=== PATIENT | male | born 1935 | race Caucasian/White ===

== ENCOUNTER 2018-06-27 14:51 | Inpatient (IN) ==
--- NOTE | 2018-06-27 16:14 | ED ---
HPI General Chief complaint: Weakness Stated complaint: Weak/Dizzy/Cold Sx x1wk Time Seen by Provider: 06/27/18 15:33 Source: patient Mode of arrival: ambulatory Limitations: no limitations History of Present Illness MD Complaint: Reports generalized weakness Onset (ago): week(s) (1) Duration: constant and progressively worsening Location: Reports generalized Relieving factors: none Exacerbating factors: other (standing up) Context: Reports other (Patient just drove here from [place]) Associated symptoms: Reports other (swollen LLE, recent left TKA) Related Data Home Medications Medication Instructions Recorded Confirmed tamsulosin 0.4 mg PO DAILY 06/27/18 06/27/18 Allergies Allergy/AdvReac Type Severity Reaction Status Date / Time No Known Allergies Allergy Verified 06/27/18 15:12 Review of Systems ROS: all other systems reviewed are negative [facility] Medical History Medical History History of kidney cancer (Acute) Surgical History Surgical History H/O kidney removal (Acute) H/O left knee surgery (Acute) Social History Social History Substance History: No History of Abuse Smoking Status: Never smoker How Often Do You Have a Drink Containing Alcohol: Monthly or less Recent Travel in [facility] within the Last 8 Weeks: No Recent Out of Country Travel within the Last 8 Weeks: No Immunization History Tetanus Immunization: >5 Years Exam Const General: cooperative, healthy appearing, comfortable, no acute distress and well developed Orientation: alert, awake and oriented x3 HENMT Head: normal to inspection, normocephalic and atraumatic Eyes Alignment and Position: alignment normal and position abnormal Conjunctivae: conjunctivae normal Sclera: sclerae normal EOM: EOM intact bilaterally Neck Neck: normal visual inspection and full ROM Chest Chest: normal inspection of the chest Resp Effort & Inspection: normal respiratory effort and able to speak in complete sentences Auscultation: clear to auscultation bilaterally Cardio Rate: regular rate Rhythm: regular rhythm GI Inspection: normal to inspection Palpation: soft Back/Spine/Pelvis Cervical Spine: cervical ROM normal Thoracic/Lumbar Spine: thoraco-lumbar ROM normal Skin General: no rashes or lesions noted, turgor normal and dry skin Neuro General: alert, awake, oriented x3, moves all extremities and CN's II-XI intact bilaterally Extrem General: normal to inspection, full ROM and edema Laterality: on the left Psych Appearance: grossly normal Mental Status: mental status grossly normal Speech and Movement: speech and movement normal Mood: congruent mood Affect: normal affect Attitude: cooperative Thought Process: normal Thought Content: normal Judgment: judgment good Course Initial Documented Vital Signs Temperature 97.6 F 06/27/18 15:10 Pulse Rate 86 06/27/18 15:10 Respiratory Rate 16 06/27/18 15:10 Blood Pressure 93/54 L 06/27/18 15:10 Pulse Oximetry 100 06/27/18 15:10 Last Documented Vital Signs Temperature 97.6 F 06/27/18 15:10 Pulse Rate 68 06/27/18 16:45 Respiratory Rate 19 06/27/18 16:45 Blood Pressure 128/63 06/27/18 16:45 Pulse Oximetry 99 06/27/18 16:45 Critical Care Time Critical Care Time: Yes Total Critical Care Time: 30 Attestation: Time to perform other separately billable procedures was not included in the critical care time. My time did not include minutes spent treating any other patients simultaneously or on activities that did not directly contribute to the patient's treatment. The services I provided to this patient were to treat and/or prevent clinically significant deterioration due to weakness, rule out ACS I provided critical care services requiring my management, as noted below: Chart data review, documentation time, medication orders and management, vital sign assessments/reviewing monitor data, ordering and reviewing lab tests, ordering and interpreting/reviewing x-rays and diagnostic studies, care of the patient and discussion of the patient with the admitting physicians Medical Decision Making MDM Narrative Medical decision making narrative: This patient presents with a one-week history of weakness/lightheadedness. Symptoms are exacerbated on standing. He also reports a dry cough. He further reports that he just drove here from [place] and that he has had swelling of his left leg. He had a left total knee arthroplasty about a month ago. Exam is remarkable only for edema of the left lower extremity. Patient's troponin is elevated but he also has an elevated creatinine of 2.0. I have not yet ordered heparin because he could have a DVT. If he has a DVT, the dose of heparin is different. Therefore, I will wait until this ultrasound before heparinizing him. I will give him an aspirin. Repeat troponin was ordered for 3 hours after the first troponin. I have ordered heparin bolus and drip using the DVT protocol. Medical Screen Exam Complete: Yes Emergency Medical Condition: Yes Differential Diagnosis Differential Diagnosis: Differential diagnosis of weakness includes but is not limited to infection, CVA, electrolyte disturbance, renal failure, hypoglycemia Lab Data Lab results reviewed: Yes I reviewed the patient's lab results. Result diagrams: 06/27/18 16:10 06/27/18 16:10 Lab Results 06/27/18 06/27/18 06/27/18 Range/Units 16:10 16:10 16:10 CBC w Diff Auto diff final WBC 7.9 (4.0-11.0) th/mm3 RBC 4.26 L (4.50-5.90) mil/mm3 Hgb 12.1 L (13.0-17.0) gm/dL Hct 36.1 L (39.0-51.0) % MCV 84.9 (80.0-100.0) fL MCH 28.5 (27.0-34.0) pg MCHC 33.6 (32.0-36.0) % RDW 13.1 (11.6-17.2) % Plt Count 230 (150-450) th/mm3 MPV 7.4 (7.0-11.0) fL Neut % (Auto) 75.4 H (16.0-70.0) % Lymph % (Auto) 17.0 (9.0-44.0) % Blaine % (Auto) 5.8 (0.0-8.0) % Eos % (Auto) 1.5 (0.0-4.0) % Baso % (Auto) 0.3 (0.0-2.0) % Neut # (Auto) 6.0 (1.8-7.7) th/mm3 Lymph # (Auto) 1.3 (1.0-4.8) th/mm3 Blaine # (Auto) 0.5 (0.0-0.9) th/mm3 Eos # (Auto) 0.1 (0.0-0.4) th/mm3 Baso # (Auto) 0.0 (0.0-0.2) th/mm3 WBC Differential . Differential Comment . PT 11.1 (9.8-11.6) sec INR 1.1 Ratio APTT 30.6 (23.4-31.7) sec Sodium 137 (136-145) meq/L Potassium 4.9 (3.5-5.1) meq/L Chloride 107 (98-107) meq/L Carbon Dioxide 23.8 (21.0-32.0) meq/L Anion Gap 6 (5-15) meq/L BUN 28 H (7-18) mg/dL Creatinine 2.00 H (0.60-1.30) mg/dL Estimated GFR 32 L (>89) mL/min Random Glucose 114 H (74-106) mg/dL Calcium 9.1 (8.5-10.1) mg/dL Magnesium 2.2 (1.5-2.5) mg/dL Total Bilirubin 0.8 (0.2-1.0) mg/dL AST 21 (15-37) U/L ALT 20 (12-78) U/L Alkaline Phosphatase 116 (45-117) U/L Troponin I 0.28 H (0.02-0.05) ng/mL Total Protein 7.6 (6.4-8.2) g/dL Albumin 3.3 L (3.4-5.0) g/dL Urine Color (Yellw/Straw) Urine Clarity (Clear) Urine pH (5.0-8.5) Ur Specific [place] (1.002-1.035) Urine Protein (Neg-Trace) mg/dL Urine Glucose (UA) (Negative) mg/dL Urine Ketones (Negative) mg/dL Urine Occult Blood (Negative) Urine Nitrate (Negative) Urine Bilirubin (Negative) Urine Urobilinogen (Less than 2) mg/dL Ur Leukocyte Esterase (Negative) Urine RBC (0-3) /hpf Urine WBC (0-5) /hpf Urine Mucus (Occasional) /lpf Micro UA Comment Ur Microscopic Review Urine Culture Comments 06/27/18 Range/Units 16:50 CBC w Diff WBC (4.0-11.0) th/mm3 RBC (4.50-5.90) mil/mm3 Hgb (13.0-17.0) gm/dL Hct (39.0-51.0) % MCV (80.0-100.0) fL MCH (27.0-34.0) pg MCHC (32.0-36.0) % RDW (11.6-17.2) % Plt Count (150-450) th/mm3 MPV (7.0-11.0) fL Neut % (Auto) (16.0-70.0) % Lymph % (Auto) (9.0-44.0) % Blaine % (Auto) (0.0-8.0) % Eos % (Auto) (0.0-4.0) % Baso % (Auto) (0.0-2.0) % Neut # (Auto) (1.8-7.7) th/mm3 Lymph # (Auto) (1.0-4.8) th/mm3 Blaine # (Auto) (0.0-0.9) th/mm3 Eos # (Auto) (0.0-0.4) th/mm3 Baso # (Auto) (0.0-0.2) th/mm3 WBC Differential Differential Comment PT (9.8-11.6) sec INR Ratio APTT (23.4-31.7) sec Sodium (136-145) meq/L Potassium (3.5-5.1) meq/L Chloride (98-107) meq/L Carbon Dioxide (21.0-32.0) meq/L Anion Gap (5-15) meq/L BUN (7-18) mg/dL Creatinine (0.60-1.30) mg/dL Estimated GFR (>89) mL/min Random Glucose (74-106) mg/dL Calcium (8.5-10.1) mg/dL Magnesium (1.5-2.5) mg/dL Total Bilirubin (0.2-1.0) mg/dL AST (15-37) U/L ALT (12-78) U/L Alkaline Phosphatase (45-117) U/L Troponin I (0.02-0.05) ng/mL Total Protein (6.4-8.2) g/dL Albumin (3.4-5.0) g/dL Urine Color Yellow (Yellw/Straw) Urine Clarity Clear (Clear) Urine pH 6.0 (5.0-8.5) Ur Specific [place] 1.020 (1.002-1.035) Urine Protein Negative (Neg-Trace) mg/dL Urine Glucose (UA) Negative (Negative) mg/dL Urine Ketones Negative (Negative) mg/dL Urine Occult Blood Negative (Negative) Urine Nitrate Negative (Negative) Urine Bilirubin Negative (Negative) Urine Urobilinogen 0.2 (Less than 2) mg/dL Ur Leukocyte Esterase Negative (Negative) Urine RBC 0-3 (0-3) /hpf Urine WBC 0-5 (0-5) /hpf Urine Mucus Few H (Occasional) /lpf Micro UA Comment Culture not ind Ur Microscopic Review Microscopic reviewed Urine Culture Comments Culture not ind Imaging Data Radiologist's impression: Chest X-Ray 06/27/18 16:05 CONCLUSION: 1. No acute cardiopulmonary disease. 2. Mild prominence of the ascending aorta. Venous Doppler Study 06/27/18 16:05 CONCLUSION: 1. Positive for occlusive deep venous thrombosis from proximal calf to proximal thigh. ECG Data EKG Prior to Arrival: No Attestation: I personally reviewed and interpreted this ECG as follows: (Sinus rhythm with a rate of 71. No acute STT wave changes.) Discharge Plan Discharge Disposition Patient Disposition: ED Admit(ED Internal Use Only) Discharge Order Discharge Orders: ED Use Only Admit Order (Routine); Ordered 06/27/18 Ordered By: Nimisha Bianchi Discharge Details Diagnosis: DVT (deep venous thrombosis), Elevated troponin, Chronic kidney disease Physicians Team ED Provider: Nimisha Bianchi Primary Care Provider: Primary Care Miguelina Harry Attending Provider: Liam Ornelas Rxs /Orders / Referrals /Forms Prescriptions: No Action tamsulosin 0.4 mg Capsule 0.4 mg PO DAILY RF: 0 Discharge Interventions Interventions: Vital Signs Last Done: 06/27/18 16:45 Status ED Status: Admitted Patient
[2018-06-27 16:26] LABS: Baso % (Auto) 0.3 % (0.0-2.0); Eos # (Auto) 0.1 th/mm3 (0.0-0.4); Eos % (Auto) 1.5 % (0.0-4.0); Hematocrit 36.1 % (39.0-51.0); Hemoglobin 12.1 gm/dL (13.0-17.0); Lymph # (Auto) 1.3 th/mm3 (1.0-4.8); Mean Corpuscular HGB Conc 33.6 % (32.0-36.0); Mean Corpuscular Hemoglobin 28.5 pg (27.0-34.0); Mean Corpuscular Volume 84.9 fL (80.0-100.0); Mean Platelet Volume 7.4 fL (7.0-11.0); Mono # (Auto) 0.5 th/mm3 (0.0-0.9); Mono % (Auto) 5.8 % (0.0-8.0); Neut % (Auto) 75.4 % (16.0-70.0); Platelet Count 230 th/mm3 (150-450); Red Blood Count 4.26 mil/mm3 (4.50-5.90); Red Cell Distribution Width 13.1 % (11.6-17.2); White Blood Count 7.9 th/mm3 (4.0-11.0)
[2018-06-27 16:37] LABS: Chloride 107 meq/L (98-107); Potassium 4.9 meq/L (3.5-5.1); Sodium 137 meq/L (136-145)
[2018-06-27 16:40] LABS: Calcium 9.1 mg/dL (8.5-10.1)
[2018-06-27 16:41] LABS: Albumin 3.3 g/dL (3.4-5.0); Anion Gap 6 meq/L (5-15); Blood Urea Nitrogen 28 mg/dL (7-18); Carbon Dioxide 23.8 meq/L (21.0-32.0); Glucose,Random 114 mg/dL (74-106); Magnesium 2.2 mg/dL (1.5-2.5)
[2018-06-27 16:44] LABS: Alanine Aminotransferase 20 U/L (12-78); Aspartate Aminotransferase 21 U/L (15-37); Glomerular Filtration Rate 32 mL/min (>89)
[2018-06-27 16:46] LABS: Total Protein 7.6 g/dL (6.4-8.2)
[2018-06-27 16:47] LABS: Alkaline Phosphatase 116 U/L (45-117)
[2018-06-27 16:49] LABS: Troponin I 0.28 ng/mL (0.02-0.05)
--- NOTE | 2018-06-27 16:50 | XR ---
EXAM DATE: 06/27/2018 4:42 PM EST AGE/SEX: 82 years / Male INDICATIONS: . Cough with congestion and dizziness for one week. CLINICAL DATA: This is the patient's initial encounter. Patient reports that signs and symptoms have been present for 1 week and indicates a pain score of 0/10. MEDICAL/SURGICAL HISTORY: None. None. COMPARISON: No prior exams available for comparison. FINDINGS: PA and lateral views of the chest demonstrate the lungs to be symmetrically aerated without evidence of mass, infiltrate or effusion. The heart size is within normal limits. There is mild prominence of the ascending aorta. Osseous structures are intact. CONCLUSION: 1. No acute cardiopulmonary disease. 2. Mild prominence of the ascending aorta. Electronically signed by: Peter Johns MD Board Certified Radiologist 06/27/2018 4:49 PM EST
[2018-06-27 16:59] LABS: Bilirubin,Urine Negative (Negative); Clarity,Urine Clear (Clear); Color,Urine Yellow (Yellw/Straw); Glucose,Urine (UA) Negative (Negative); Leukocyte Esterase,Urine Negative (Negative); Nitrite,Urine Negative (Negative); Urobilinogen,Urine 0.2 mg/dL (Less than 2)
[2018-06-27 17:05] LABS: RBC,Urine 0-3 /hpf (0-3); WBC,Urine 0-5 /hpf (0-5)
[2018-06-27 17:06] LABS: Mucus,Urine Few /lpf (Occasional)
[2018-06-27] MEDS ORDERED: Heparin 10,000 UNITS/10 ML Vial (for IV use) IV.PUSH STA (17:25)
--- NOTE | 2018-06-27 17:49 | US ---
EXAM DATE: 06/27/2018 5:46 PM EST AGE/SEX: 82 years / Male INDICATIONS: Left lower extremity swelling after long distance travel and recent total knee replacem ent. CLINICAL DATA: This is the patient's initial encounter. Patient reports that signs and symptoms have been present for 2 weeks and indicates a pain score of 6/10. MEDICAL/SURGICAL HISTORY: . Renal cancer. . Total knee replacement - May 01, 2018. Nep hrectomy. COMPARISON: No prior exams available for comparison. TECHNIQUE: Venous ultrasound of both lower extremities was performed from the inguinal ligament to t he proximal calf. Real-time, color Doppler and spectral tracing, compression and augmentation techni ques were used. FINDINGS: Some flow is seen in the common femoral vein. There is absent flow in the entire superfici al femoral vein down to the popliteal and posterior tibial. No augmentation of flow. CONCLUSION: 1. Positive for occlusive deep venous thrombosis from proximal calf to proximal thigh. Electronically signed by: Darrick Reynolds MD Board Certified Radiologist 06/27/2018 5:48 PM EST
[2018-06-27 17:50] LABS: Activated Partial Thrombo Time 30.6 sec (23.4-31.7); INR 1.1 Ratio; Prothrombin Time 11.1 sec (9.8-11.6)
[2018-06-27] MEDS ORDERED: Acetaminophen 325 MG Tablet PO PRN (18:11)
[2018-06-27] MEDS: Heparin Drip 25,000 UNIT/250 ML BAG IV.CONT PRN (18:25)
[2018-06-27] MEDS ORDERED: Heparin 10,000 UNITS/10 ML Vial (for IV use) IV.PUSH PRN (23:25)
[2018-06-28 06:27] LABS: Baso % (Auto) 0.6 % (0.0-2.0); Eos # (Auto) 0.3 th/mm3 (0.0-0.4); Eos % (Auto) 3.3 % (0.0-4.0); Hematocrit 32.6 % (39.0-51.0); Hemoglobin 10.8 gm/dL (13.0-17.0); Lymph # (Auto) 2.1 th/mm3 (1.0-4.8); Lymph % (Auto) 27.6 % (9.0-44.0); Mean Corpuscular HGB Conc 33.2 % (32.0-36.0); Mean Corpuscular Hemoglobin 28.2 pg (27.0-34.0); Mean Corpuscular Volume 84.9 fL (80.0-100.0); Mean Platelet Volume 8.2 fL (7.0-11.0); Mono # (Auto) 0.5 th/mm3 (0.0-0.9); Mono % (Auto) 6.8 % (0.0-8.0); Neut # (Auto) 4.8 th/mm3 (1.8-7.7); Neut % (Auto) 61.7 % (16.0-70.0); Platelet Count 208 th/mm3 (150-450); Red Blood Count 3.84 mil/mm3 (4.50-5.90); Red Cell Distribution Width 13.3 % (11.6-17.2); White Blood Count 7.7 th/mm3 (4.0-11.0)
[2018-06-28 06:45] LABS: Alanine Aminotransferase 19 U/L (12-78); Albumin 2.8 g/dL (3.4-5.0); Anion Gap 10 meq/L (5-15); Aspartate Aminotransferase 17 U/L (15-37); Blood Urea Nitrogen 27 mg/dL (7-18); Calcium 8.8 mg/dL (8.5-10.1); Carbon Dioxide 21.5 meq/L (21.0-32.0); Chloride 108 meq/L (98-107); Glomerular Filtration Rate 39 mL/min (>89); Glucose,Random 97 mg/dL (74-106); Potassium 4.1 meq/L (3.5-5.1); Sodium 139 meq/L (136-145); Total Protein 6.8 g/dL (6.4-8.2)
[2018-06-28 06:46] LABS: Alkaline Phosphatase 101 U/L (45-117)
[2018-06-28] MEDS: Heparin Drip 25,000 UNIT/250 ML BAG IV.CONT PRN (08:58)
--- NOTE | 2018-06-28 10:56 | P.HPIM ---
History of Present Illness Primary Care Physician: No Primary Care Physician Chief Complaint: Left Leg Swelling and Pain History of Present Illness: Mr. Walters is an 82-year-old male. He has a past history of left knee surgery on May 01, 2018. He reports that he was on blood thinners after the surgery for about 2 weeks. He has been recovering from the surgery with PT. The only symptoms he was having prior to recently were some dizzy episodes. 2 weeks ago he took a road trip from [place] down to this area, which she does annually with his . He says during this trip his left lower extremity became extremely swollen and hard. Since that time it has been improving but he is been continuing to have more frequent dizzy episodes. The left lower extremity continues to have general swelling compared to the right. He came into the hospital to be evaluated. We find that he has a left lower extremity DVT. He started on heparin IV last night. He has some chronic kidney disease, nephrectomy was performed in September 2017. Baseline creatinine appears to be 2.3. Yesterday he came in with a creatinine of 2.0 and this has improved to 1.7 this morning. Nevertheless, he needs Coumadin as a blood thinner due to his kidney disease. No complaints of fever. No complaints of shortness of breath or chest pain. At baseline he is otherwise healthy and only uses tamsulosin for BPH. Inpatient Certification Inpatient Certification: I certify that the inpatient services were ordered in accordance with Medicare regulations governing the order. This includes certification that hospital inpatient services are reasonable and necessary and in the case of services not specified as inpatient-only under 42 CFR 419.22(n), that they are appropriately provided as inpatient services in accordance to with the 2-midnight benchmark under 43 CFR 412.3(e) Estimated Total Length of Stay (Days): 3 Plans for Post Hospital Care: Home Review of Systems Constitutional: No fevers, no chills no night sweats, no fatigue, no weakness Eyes: No eye pain, no blurry vision, no loss of vision ENT: No sore throat, no ear pain, no rhinorrhea Cardiovascular: No chest pain, no tachycardia, no palpitations, no syncope Respiratory: No wheezing, no cough, no shortness of breath Gastrointestinal: No abdominal pain, no black tarry stools, no bright red blood per rectum, no vomiting, no diarrhea Musculoskeletal: No joint pain, no muscle cramps, no stiffness, left lower extremity swelling Integumentary: No rash, no ulcers, no drainage Neurologic: No sensory loss, no loss of motor function, dizziness Psychiatric: No behavioral changes, no hallucinations, no suicidal ideations [facility] Medical History Medical History History of kidney cancer (Acute) Surgical History Surgical History H/O kidney removal (Acute) H/O left knee surgery (Acute) Family History Family History Other Osteoarthritis Social History Social History Substance History: No History of Abuse Second Hand Smoke Exposure: No Smoking Status: Never smoker How Often Do You Have a Drink Containing Alcohol: Monthly or less Recent Travel in [facility] within the Last 8 Weeks: Yes Recent Out of Country Travel within the Last 8 Weeks: No Immunization History Tetanus Immunization: Unsure Hx Influenza Vaccine This Season: Yes Medications and Allergies Allergies Allergy/AdvReac Type Severity Reaction Status Date / Time No Known Allergies Allergy Verified 06/27/18 15:12 Home Medications Medication Instructions Recorded Confirmed Type tamsulosin 0.4 mg PO DAILY 06/27/18 06/27/18 History Active Medications: Active Medications Acetaminophen (Tylenol) 650 mg PO Q4H PRN PRN Reason: Temp > 100.4 Al Hydroxide/Mg Hydroxide (Milk Of Jared An) 30 ml PO Q12H PRN PRN Reason: Mild Constipation Heparin Sodium (Porcine) (Heparin Inj) 2,500 units IV.PUSH UNSCH PRN PRN Reason: aPTT 25-39 Heparin Sodium/Dextrose (Heparin/D5w 25,000 U/250 Ml) 25,000 unit in 250 mls @ 0 mls/hr IV.CONT TITRATE PRN; Protocol PRN Reason: Per Protocol Last Admin: 06/28/18 08:58 Dose: 1,600 units/hr, 16 mls/hr Ondansetron HCl (Zofran Inj) 4 mg IV.PUSH Q6H PRN PRN Reason: NAUSEA OR VOMITING Sodium Chloride (Ns Flush) 2 ml IV.FLUSH PRN PRN PRN Reason: FLUSH AFTER USING IV ACCESS Sodium Chloride (Ns Flush) 2 ml IV.FLUSH BID CHARISSA Last Admin: 06/28/18 10:30 Dose: Not Given Sodium Chloride (Ns Flush) 2 ml IV.FLUSH PRN PRN PRN Reason: FLUSH AFTER USING IV ACCESS Tamsulosin HCl (Flomax) 0.4 mg PO DAILY [facility] Last Admin: 06/28/18 08:27 Dose: 0.4 mg Warfarin Sodium (Coumadin) 5 mg PO DAILY@1600 [facility] Physical Exam Vital signs: Vital Signs 06/27/18 15:10 06/27/18 16:06 06/27/18 16:45 Temperature 97.6 F Pulse Rate 86 68 Respiratory Rate 16 19 Blood Pressure 93/54 L 128/63 Pulse Oximetry 100 96 99 06/27/18 17:45 06/27/18 18:35 06/27/18 19:30 Temperature Pulse Rate 71 76 73 Respiratory Rate 18 18 Blood Pressure 106/67 100/60 91/63 L Pulse Oximetry 98 98 06/27/18 20:00 06/27/18 20:45 06/28/18 00:00 Temperature 97.0 F L 96.4 F L Pulse Rate 60 59 L 58 L Respiratory Rate 18 18 Blood Pressure 129/70 128/75 Pulse Oximetry 99 95 06/28/18 04:00 06/28/18 08:00 Temperature 96.5 F L 97.9 F Pulse Rate 58 L 59 L Respiratory Rate 18 21 Blood Pressure 123/67 144/66 H Pulse Oximetry 96 95 Intake & Output 06/27/18 06/28/18 06/28/18 18:59 06:59 18:59 Intake Total 506 / 506 439 / 439 Output Total 350 / 350 400 / 400 Balance 156 / 156 39 / 39 Weight 106.5 kg 106 kg Intake: IV 199 / 199 Heparin/D5W 25,000 U/250 mL , 199 / 199 000 unit In 250 ml @ Per Protocol IV.CONT TITRATE PRN Rx #:[id number] Oral 240 / 240 Oral Supplement 480 / 480 Output: Urine 350 / 350 400 / 400 Other: Date of Last Bowel Movement 06/26/18 Weight On Admission 105.1 kg Narrative: GENERAL: NAD, A&Ox3 HEAD: Normocephalic. NECK: Supple, trachea midline. No lymphadenopathy. EYES: No scleral icterus. No injection or drainage. CARDIOVASCULAR: Regular rate and rhythm without murmurs, gallops, or rubs. RESPIRATORY: Breath sounds equal bilaterally. No accessory muscle use. GASTROINTESTINAL: Abdomen soft, non-tender, nondistended. MUSCULOSKELETAL: No cyanosis. No skin discoloration at affected leg. Left lower extremity has swelling compared to the right. SKIN: Warm and dry. NEURO: No focal neurological deficits. Results Labs CBC & Chem 7: 06/28/18 04:37 06/28/18 04:37 Imaging Impressions Chest X-Ray 06/27/18 16:05 CONCLUSION: 1. No acute cardiopulmonary disease. 2. Mild prominence of the ascending aorta. Venous Doppler Study 06/27/18 16:05 CONCLUSION: 1. Positive for occlusive deep venous thrombosis from proximal calf to proximal thigh. Caprini VTE Risk Assessment Caprini VTE Risk Assessment: Moderate/High Risk (score >= 2) Caprini Risk Assessment Model: Point Value = 1 Point Value = 2 Point Value = 3 Point Value = 5 Age 41-60 Minor surgery BMI > 25 kg/m2 Swollen legs Varicose veins or History of unexplained or recurrent spontaneous Oral contraceptives or hormone replacement Sepsis (< 1 month) Serious lung disease, including pneumonia (< 1 month) Abnormal pulmonary function Acute myocardial infarction Congestive heart failure (< 1 month) History of inflammatory bowel disease Medical patient at bed rest Age 61-74 Arthroscopic surgery Major open surgery (> 45 min) Laparoscopic surgery (> 45 min) Malignancy Confined to bed (> 72 hours) Immobilizing plaster cast Central venous access Age >= 75 History of VTE Family history of VTE Factor V Leiden Prothrombin [id number] Lupus anticoagulant Anticardiolipin antibodies Elevated serum homocysteine Heparin-induced thrombocytopenia Other congenital or acquired thrombophilia Stroke (< 1 month) Elective arthroplasty Hip, pelvis, or leg fracture Acute spinal cord injury (< 1 month) Prophylaxis Regimen: Total Risk Factor Score Risk Level Prophylaxis Regimen 0-1 Low Early ambulation 2 Moderate Order ONE of the following: *Sequential Compression Device (SCD) *Heparin 5000 units SQ BID 3-4 Higher Order ONE of the following medications: *Heparin 5000 units SQ TID *Enoxaparin/Lovenox 40 mg SQ daily (WT < 150 kg, CrCl > 30 mL/min) *Enoxaparin/Lovenox 30 mg SQ daily (WT < 150 kg, CrCl > 10-29 mL/min) *Enoxaparin/Lovenox 30 mg SQ BID (WT < 150 kg, CrCl > 30 mL/min) AND/OR *Sequential Compression Device (SCD) 5 or more Highest Order ONE of the following medications: *Heparin 5000 units SQ TID (Preferred with Epidurals) *Enoxaparin/Lovenox 40 mg SQ daily (WT < 150 kg, CrCl > 30 mL/min) *Enoxaparin/Lovenox 30 mg SQ daily (WT < 150 kg, CrCl > 10-29 mL/min) *Enoxaparin/Lovenox 30 mg SQ BID (WT < 150 kg, CrCl > 30 mL/min) AND *Sequential Compression Device (SCD) Assessment and Plan Plan 82-year-old male admitted secondary to left lower extremity DVT Left lower extremity DVT Size larger than average Heparin IV (bridge) Monitor symptoms for improvement Begin Coumadin baseline treatment Follow INR Chronic kidney disease Follow renal function Avoid nephrotoxins Coumadin selected as an anticoagulant due to kidney disease BPH Continue tamsulosin DVT prophylaxis Heparin H&P: Quality VTE Deep Vein Thrombosis/Pulmonary Embolism Present on Admission: Yes
--- NOTE | 2018-06-28 14:38 | ECG ---
Date Performed: 06/27/2018 Time Performed: 16:12:25 PTAGE: 82 years EKG: Sinus rhythm LOW QRS VOLTAGE IN PRECORDIAL LEADS BORDERLINE ECG NO PREVIOUS TRACING DOCTOR: Barbara Carreno Interpretating Date/Time 06/28/2018 14:32:53
[2018-06-29] MEDS: Heparin Drip 25,000 UNIT/250 ML BAG IV.CONT PRN ×2 (01:38→18:01)
[2018-06-29 06:47] LABS: Baso % (Auto) 0.5 % (0.0-2.0); Eos # (Auto) 0.2 th/mm3 (0.0-0.4); Eos % (Auto) 3.3 % (0.0-4.0); Hematocrit 33.2 % (39.0-51.0); Hemoglobin 10.7 gm/dL (13.0-17.0); Lymph % (Auto) 30.8 % (9.0-44.0); Mean Corpuscular HGB Conc 32.2 % (32.0-36.0); Mean Corpuscular Hemoglobin 27.6 pg (27.0-34.0); Mean Platelet Volume 8.4 fL (7.0-11.0); Mono # (Auto) 0.4 th/mm3 (0.0-0.9); Mono % (Auto) 5.6 % (0.0-8.0); Neut # (Auto) 3.8 th/mm3 (1.8-7.7); Neut % (Auto) 59.8 % (16.0-70.0); Platelet Count 223 th/mm3 (150-450); Red Blood Count 3.86 mil/mm3 (4.50-5.90); Red Cell Distribution Width 13.6 % (11.6-17.2); White Blood Count 6.4 th/mm3 (4.0-11.0)
[2018-06-29 07:00] LABS: Chloride 110 meq/L (98-107); Potassium 3.9 meq/L (3.5-5.1); Sodium 140 meq/L (136-145)
[2018-06-29 07:04] LABS: Calcium 8.6 mg/dL (8.5-10.1)
[2018-06-29 07:05] LABS: Activated Partial Thrombo Time 54.5 sec (23.4-31.7); Albumin 2.8 g/dL (3.4-5.0); Anion Gap 7 meq/L (5-15); Blood Urea Nitrogen 28 mg/dL (7-18); Glucose,Random 107 mg/dL (74-106); INR 1.1 Ratio; Prothrombin Time 11.1 sec (9.8-11.6)
[2018-06-29 07:08] LABS: Alanine Aminotransferase 26 U/L (12-78); Aspartate Aminotransferase 23 U/L (15-37); Glomerular Filtration Rate 34 mL/min (>89)
[2018-06-29 07:10] LABS: Total Protein 6.7 g/dL (6.4-8.2)
[2018-06-29 07:11] LABS: Alkaline Phosphatase 102 U/L (45-117)
--- NOTE | 2018-06-29 11:34 | P.PNIM ---
Subjective Interval history: No significant change in symptoms, per patient. No shortness of breath or chest pain. INR is 1.1 today. Physical Exam Vital signs: Vital Signs 06/28/18 12:00 06/28/18 16:00 06/28/18 20:00 Temperature 98.1 F 98.0 F 97.2 F L Pulse Rate 64 74 63 Respiratory Rate 20 20 16 Blood Pressure 119/60 124/63 125/65 Pulse Oximetry 96 95 97 06/28/18 21:55 06/29/18 00:00 06/29/18 04:00 Temperature 98.0 F 97.9 F Pulse Rate 63 67 60 Respiratory Rate 18 16 Blood Pressure 137/69 123/65 Pulse Oximetry 96 98 Intake & Output 06/28/18 06/29/18 06/29/18 18:59 06:59 18:59 Intake Total 1079 / 1079 250 / 250 Output Total 700 / 700 500 / 500 Balance 379 / 379 -250 / -250 Weight 104.1 kg Intake: IV 199 / 199 250 / 250 Heparin/D5W 25,000 U/250 mL 25, 199 / 199 250 / 250 000 unit In 250 ml @ Per Protocol IV.CONT TITRATE PRN Rx #:[id number] Oral 880 / 880 Output: Urine 700 / 700 500 / 500 Other: # Voids 5 Narrative: GENERAL: NAD, A&Ox3 HEAD: Normocephalic. NECK: Supple, trachea midline. No lymphadenopathy. EYES: No scleral icterus. No injection or drainage. CARDIOVASCULAR: Regular rate and rhythm without murmurs, gallops, or rubs. RESPIRATORY: Breath sounds equal bilaterally. No accessory muscle use. GASTROINTESTINAL: Abdomen soft, non-tender, nondistended. MUSCULOSKELETAL: No cyanosis. No skin discoloration at affected leg. Left lower extremity has swelling compared to the right (slightly improved). SKIN: Warm and dry. NEURO: No focal neurological deficits. Results Labs CBC & Chem 7: 06/29/18 05:20 06/29/18 05:20 Assessment and Plan Plan 82-year-old male admitted secondary to left lower extremity DVT Slight improvement clinically today. INR is 1.1. Therapeutic INR needed prior to discharge. Continue monitoring INR. To new heparin IV for bridging. Left lower extremity DVT Size larger than average Heparin IV (bridge) Monitor symptoms for improvement Begin Coumadin baseline treatment Follow INR Chronic kidney disease Follow renal function Avoid nephrotoxins Coumadin selected as an anticoagulant due to kidney disease BPH Continue tamsulosin DVT prophylaxis Heparin Progress Note: Quality VTE Deep Vein Thrombosis/Pulmonary Embolism Present on Admission: Yes
[2018-06-30 06:55] LABS: Baso % (Auto) 0.3 % (0.0-2.0); Eos # (Auto) 0.3 th/mm3 (0.0-0.4); Eos % (Auto) 3.6 % (0.0-4.0); Hematocrit 32.9 % (39.0-51.0); Hemoglobin 10.9 gm/dL (13.0-17.0); Lymph # (Auto) 1.9 th/mm3 (1.0-4.8); Lymph % (Auto) 22.8 % (9.0-44.0); Mean Corpuscular Hemoglobin 28.2 pg (27.0-34.0); Mean Corpuscular Volume 85.4 fL (80.0-100.0); Mean Platelet Volume 8.3 fL (7.0-11.0); Mono # (Auto) 0.5 th/mm3 (0.0-0.9); Mono % (Auto) 5.5 % (0.0-8.0); Neut # (Auto) 5.5 th/mm3 (1.8-7.7); Neut % (Auto) 67.8 % (16.0-70.0); Platelet Count 261 th/mm3 (150-450); Red Blood Count 3.85 mil/mm3 (4.50-5.90); Red Cell Distribution Width 13.4 % (11.6-17.2); White Blood Count 8.2 th/mm3 (4.0-11.0)
[2018-06-30 07:04] LABS: INR 1.1 Ratio; Prothrombin Time 10.9 sec (9.8-11.6)
[2018-06-30 07:08] LABS: Chloride 109 meq/L (98-107); Potassium 4.1 meq/L (3.5-5.1); Sodium 141 meq/L (136-145)
[2018-06-30 07:17] LABS: Calcium 9.1 mg/dL (8.5-10.1)
[2018-06-30 07:18] LABS: Albumin 2.9 g/dL (3.4-5.0); Anion Gap 8 meq/L (5-15); Blood Urea Nitrogen 28 mg/dL (7-18); Carbon Dioxide 23.8 meq/L (21.0-32.0); Glucose,Random 112 mg/dL (74-106)
[2018-06-30 07:21] LABS: Alanine Aminotransferase 26 U/L (12-78); Aspartate Aminotransferase 20 U/L (15-37); Glomerular Filtration Rate 34 mL/min (>89)
[2018-06-30 07:23] LABS: Total Protein 6.9 g/dL (6.4-8.2)
[2018-06-30 07:24] LABS: Alkaline Phosphatase 106 U/L (45-117)
--- NOTE | 2018-06-30 10:00 | P.PNIM ---
Subjective Interval history: Orthostatic hypotension is still present and severe. Slightly more severe than yesterday. Patient's INR is 1.1 this morning. Physical Exam Vital signs: Vital Signs 06/29/18 12:00 06/29/18 16:00 06/29/18 20:00 Temperature 97.6 F 97.2 F L 98.1 F Pulse Rate 62 71 65 Respiratory Rate 20 18 20 Blood Pressure 127/67 140/65 125/65 Pulse Oximetry 96 97 95 06/30/18 00:00 06/30/18 04:00 06/30/18 08:00 Temperature 98.8 F 98.0 F 96.8 F L Pulse Rate 67 71 63 Respiratory Rate 18 18 20 Blood Pressure 134/64 146/70 H 126/65 Pulse Oximetry 96 97 94 L Intake & Output 06/29/18 06/30/18 06/30/18 18:59 06:59 18:59 Intake Total 970 / 970 192 / 192 Output Total 600 / 600 800 / 800 Balance 370 / 370 -608 / -608 Weight 104 kg Intake: IV 250 / 250 192 / 192 Heparin/D5W 25,000 U/250 mL 25, 250 / 250 192 / 192 000 unit In 250 ml @ Per Protocol IV.CONT TITRATE PRN Rx #:[id number] Oral 720 / 720 Output: Urine 600 / 600 800 / 800 Other: # Voids 1 Date of Last Bowel Movement 06/29/18 Narrative: GENERAL: NAD, A&Ox3 HEAD: Normocephalic. NECK: Supple, trachea midline. No lymphadenopathy. EYES: No scleral icterus. No injection or drainage. CARDIOVASCULAR: Regular rate and rhythm without murmurs, gallops, or rubs. RESPIRATORY: Breath sounds equal bilaterally. No accessory muscle use. GASTROINTESTINAL: Abdomen soft, non-tender, nondistended. MUSCULOSKELETAL: No cyanosis. No skin discoloration at affected leg. Left lower extremity has swelling compared to the right (slightly improved). SKIN: Warm and dry. NEURO: No focal neurological deficits. Results Labs CBC & Chem 7: 06/30/18 06:09 06/30/18 06:09 Assessment and Plan Plan 82-year-old male admitted secondary to left lower extremity DVT INR remains 1.1. Coumadin increased to 7.5 mg daily. Continue heparin bridging. Continue Florinef for orthostatic blood pressure testing and check orthostatic blood pressures daily. Left lower extremity DVT Size larger than average Heparin IV (bridge) Monitor symptoms for improvement Begin Coumadin baseline treatment Follow INR Chronic kidney disease Follow renal function Avoid nephrotoxins Coumadin selected as an anticoagulant due to kidney disease BPH Continue tamsulosin DVT prophylaxis Heparin Progress Note: Quality VTE Deep Vein Thrombosis/Pulmonary Embolism Present on Admission: Yes
[2018-06-30] MEDS: Heparin Drip 25,000 UNIT/250 ML BAG IV.CONT PRN (10:06)
[2018-07-01 01:02] VITALS: O2SAT 96
[2018-07-01] MEDS: Heparin Drip 25,000 UNIT/250 ML BAG IV.CONT PRN (01:45)
[2018-07-01 06:28] LABS: INR 1.1 Ratio; Prothrombin Time 11.1 sec (9.8-11.6)
[2018-07-01 06:57] LABS: Thyroid Stimulating Hormone 1.23 uIU/mL (0.358-3.740)
[2018-07-01 08:07] VITALS: BP 129/65; TEMP 96.9
[2018-07-01] MEDS ORDERED: Heparin Drip 25,000 UNIT/250 ML BAG IV.CONT PRN (08:26)
[2018-07-01 09:24] VITALS: PULSE 84
--- NOTE | 2018-07-01 09:59 | P.DS ---
DS: Providers Date of admission: 06/27/18 18:13 Primary care physician: No Primary Care Physician Consults: 06/28/18 11:57 [facility] Only Consult Order Routine Consulting Provider: [facility],Insurance Brief History from admission: Mr. Walters is an 82-year-old male. He has a past history of left knee surgery on May 01, 2018. He reports that he was on blood thinners after the surgery for about 2 weeks. He has been recovering from the surgery with PT. The only symptoms he was having prior to recently were some dizzy episodes. 2 weeks ago he took a road trip from [place] down to this area, which she does annually with his . He says during this trip his left lower extremity became extremely swollen and hard. Since that time it has been improving but he is been continuing to have more frequent dizzy episodes. The left lower extremity continues to have general swelling compared to the right. He came into the hospital to be evaluated. We find that he has a left lower extremity DVT. He started on heparin IV last night. He has some chronic kidney disease, nephrectomy was performed in September 2017. Baseline creatinine appears to be 2.3. Yesterday he came in with a creatinine of 2.0 and this has improved to 1.7 this morning. Nevertheless, he needs Coumadin as a blood thinner due to his kidney disease. No complaints of fever. No complaints of shortness of breath or chest pain. At baseline he is otherwise healthy and only uses tamsulosin for BPH. DS: Summary Mr. Walters is an 82-year-old male. He has a past medical history of nephrectomy in September 2018. He also had left knee surgery in May 2018. Related to this he has some chronic kidney disease. He came in the hospital with complaints of left lower extremity swelling and pain. Imaging showed evidence of a large left DVT. IV heparin was used as an initial treatment. Coumadin was attempted as a therapy but patient showed Coumadin resistance over the course of 3 days. Coumadin is not a viable option at this point. Patient' s transition to Eliquis at renal dosing. Additional findings while here were orthostatic hypotension. It appears that the orthostatic hypotension was accentuated related to the patient's recent DVT. He likely has baseline orthostatic hypotension which was previously undiagnosed. He is started on Florinef as a baseline treatment to minimize his orthostatic hypotension. He has shown improvement both in symptoms and severity of his orthostatic hypotension on the new treatment. Today he has a complaint of left ankle pain. He has had gout in the left great toe before. No increased swelling at the lower extremity otherwise. I believe this is an early gout exacerbation rather than any worsening of his DVT, as he has been on heparin IV. Steroids are provided and patient will be given a steroid taper at discharge in regards to his gout exacerbation. Orthostatic hypotension has been stabilized. Symptoms from his left lower extremity DVT have improved and are stable at this point. No chest pain or shortness of breath during the stay. At this point patient is medically stable and cleared for discharge to home. Instructions are provided for resumption of PT. Time Spent with Patient Total time spent providing and/or coordinating discharge services: Less than 30 minutes Quality: VTE Deep Vein Thrombosis/Pulmonary Embolism Present on Admission: Yes Results Labs on day of discharge: Labs from last 24 hours 07/01/18 07/01/18 07/01/18 04:50 04:50 04:50 PT INR APTT 51.5 H TSH 1.230 Thyroxine (T4) Pending Free T3 Pending Total Testosterone Pending Free Testosterone Pending 07/01/18 04:50 PT 11.1 INR 1.1 APTT TSH Thyroxine (T4) Free T3 Total Testosterone Free Testosterone Impressions ITS Impressions Chest X-Ray 06/27/18 16:05 CONCLUSION: 1. No acute cardiopulmonary disease. 2. Mild prominence of the ascending aorta. Venous Doppler Study 06/27/18 16:05 CONCLUSION: 1. Positive for occlusive deep venous thrombosis from proximal calf to proximal thigh. Discharge Plan Discharge Disposition Patient Disposition: Discharge Home Discharge Condition Condition: Stable Discharge Order Discharge Orders: Discharge Order (Routine); Ordered 07/01/18 Ordered By: Liam Ornelas Discharge Details Anticipated Discharge Date: 07/01/18 Discharge Comment: Prescriptions transmitted to [facility] pharmacy listed, except controlled substance was printed. Physicians Team Primary Care Provider: Primary Care Zacki,No Attending Provider: Liam Ornelas Other Providers: [employer],Insurance Rxs /Orders / Referrals /Forms Prescriptions: New hydrocodone-acetaminophen 5-325 mg Tablet 1 tab PO Q6H PRN (Reason: Pain 3 to 10) Qty: 12 RF: 0 apixaban [Eliquis] 2.5 mg Tablet 2.5 mg PO BID Qty: 60 RF: 0 fludrocortisone 0.1 mg Tablet 0.1 mg PO DAILY Qty: 60 RF: 0 prednisone 10 mg tablet 10 mg PO DIRECTED Qty: 8 RF: 0 Continue tamsulosin 0.4 mg Capsule 0.4 mg PO DAILY RF: 0 Referrals: Primary Care Miguelina Harry [Primary Care Provider] - See Instructions Discharge Instructions Patient Printed Instructions: Warfarin (By mouth) Status ED Status: Left Department
[2018-07-01] MEDS ORDERED: MethylPREDNISolone Sod Succinate Inj 40 MG/ML Vial IV.PUSH ONE (10:00)
[2018-07-01 10:04] VITALS: RESP 18
[2018-07-01 10:22] LABS: T4 (Thyroxine) 8.5 mcg/dL (4.5-12.1); Triiodothyronine (T3) Free 1.79 pg/mL (2.18-3.98)
== END 2018-07-01 11:39 | disposition home or self-care (01) | DRG 301 ==
LOC: PHED 14:51 → PHEDA 18:13 → PH3 20:03
PROVIDERS: ADMIT Hospitalist; ATTEND Hospitalist
CPT/HCPCS: 71020; 71046; 80053; 81001; 83735; 84402; 84403; 84436; 84443; 84481; 84484; 85025; 85610; 85730; 90774; 93005; 93971; 96374; 99291; C8952; J1644; J2920